=== PATIENT | male | born 1945 | race Caucasian/White ===

== ENCOUNTER 2019-08-12 08:17 | Outpatient (CLI) | payer MEDICARE, SELFPAY ==
--- NOTE | ~2019-08-12 | CT_ITS ---
EXAMINATION: CT chest abdomen w con DATE: 08/12/2019 08:58 INDICATION: Rectal cancer TECHNIQUE: Computed tomography (CT) of the chest and abdomen was performed with 100 mL Omnipaque-350 intravenous contrast. Automated exposure control and iterative reconstruction technique were employed . The dose-length product was 904.71 mGy-cm. COMPARISON: CT studies dated 05/01/2019, 10/17/2018, 10/21/2018 and 09/14/2016 and PET/CT dated 03/14/2018 FINDINGS: CHEST: Discoid atelectasis/scarring along the nondependent between the right upper and middle lobes at the s ite of a previously FDG avid nodule. Additional minimal bibasilar atelectasis. Calcified right lower lobe nodule along with calcified right bronchial lymph nodes consistent with old granulomatous diseas e. No pneumonia, suspicious pulmonary nodules, pulmonary edema or pleural effusion. Heart size is nor mal. No pericardial effusion. Atherosclerotic coronary artery calcifications. Thoracic aorta is eagle l in caliber with no dissection. No pathologically enlarged thoracic lymphadenopathy. Bilateral gynec omastia. T9 hemangioma. Mild upper thoracic levoscoliosis. ABDOMEN: Stable appearance of postoperative changes of a right hemihepatectomy with compensatory hypertrophy o f the lateral segments of the left hepatic lobe. No interval change in approximately 1.7 x 1.9 cm reg ion of decreased attenuation in the liver along the resection margin which has decreased in size sinc e 09/14/2016. The gallbladder is also surgically absent. Mild splenomegaly measuring 14.7 cm in cranio caudal length. Pancreas and bilateral adrenal glands are normal. Bilateral renal parapelvic cysts. Le ft lower quadrant likely and colostomy with parastomal hernia containing a portion of the remaining d istal colon. Partially visualized moderate sized wide mouth umbilical hernia containing loops of nono bstructed small bowel. There are a few smaller fat-containing supraumbilical ventral hernias along a midline surgical scar. Visualized portions of the bowels are otherwise unremarkable with no wall thic kening or obstruction. No pathologically enlarged abdominal lymphadenopathy. Moderate to severe lumba r spondylosis. IMPRESSION: 1. Band of discoid atelectasis/scarring along the minor fissure at the junction of the right upper an d middle lobes at the site of a prior FDG avid nodule suggesting interval treatment. 2. Status post right hemihepatectomy with no recent interval change in a small nodular region of decr eased attenuation along the resection margin, decrease in size since an earlier study which could rep resent either treated metastatic disease or scarring related to chronic infarct. 3. No evident residual metastatic disease in the chest or abdomen. 4. Additional postoperative changes including left lower quadrant end colostomy with nonobstructed gertrudis wel containing abdominal wall hernias as detailed above. Reviewed, dictated and finalized at location A. IMPRESSION: 1. Band of discoid atelectasis/scarring along the minor fissure at the junction of the right upper and middle lobes at the site of a prior FDG avid nodule sug gesting interval treatment. 2. Status post right hemihepatectomy with no recent interval change in a small nodular region of decreased attenuation along the resection margin, decrease in size since an earlier study which could represent either treated metastatic di sease or scarring related to chronic infarct. 3. No evident residual metastatic disease in the chest or abdomen. 4. Additional postoperative changes including left lower quadrant end colostomy with nonobstructed bowel containing abdominal wall hernias as detailed above.
[2019-08-12 08:47] LABS: Estimated Glomerular Filt Rate 60
== END 2019-08-12 08:18 | disposition home or self-care (01) ==
PROVIDERS: PCP Internal Medicine; Visit Provider Internal Medicine Medical Oncology
DX: C20 Malignant neoplasm of rectum (principal); R91.8 Other nonspecific abnormal finding of lung field; K43.9 Ventral hernia without obstruction or gangrene; Z90.49 Acquired absence of other specified parts of digestive tract
CPT/HCPCS: 36415; 71260; 74160; Q9967

== ENCOUNTER 2020-01-10 00:29 | Outpatient (CLI) | payer MEDICARE, SELFPAY ==
[2020-01-10 18:03] LABS: SARS-CoV-2 RNA PCR Negative
== END 2020-01-10 00:30 | disposition home or self-care (01) ==
LOC: ANHCOVIDDT 00:29
PROVIDERS: PCP Internal Medicine; Visit Provider Internal Medicine Gastroenterology
DX: Z01.812 Encounter for preprocedural laboratory examination (principal); Z20.828 Contact with and (suspected) exposure to other viral communicable diseases
CPT/HCPCS: 87635; C9803; U0003

== ENCOUNTER 2020-01-13 01:35 | Day surgery (SDC) | payer MEDICARE, SELFPAY ==
[2020-01-07 10:59] VITALS: BMI 33.7
--- NOTE | 2020-01-13 11:15 | WPDANESEPPF ---
Anes - Initial Pre Proc Eval Procedure: Operation Date: 01/13/20 12:30 Proposed Procedures p Screening Colonoscopy - James Traylor MD Date/Time: 01/13/20 11:15 Surgeon: James Traylor MD Pre Op Diagnosis: Hx of colon polyps Patient Data Age: 74 Gender: M Height: 5 ft 6 in Weight: 95 kg Allergies Allergy/AdvReac Type Severity Reaction Status Date / Time Sulfa (Sulfonamide Allergy Unknown HIVES Verified 01/13/20 11:02 Antibiotics) Home Medications Medication Instructions Recorded Confirmed Type candesartan 8 mg PO DAILY 01/07/20 01/13/20 History clonidine HCl 0.2 mg PO BID 01/07/20 01/13/20 History dexamethasone 4 mg PO DIRECTED 01/07/20 01/13/20 History hydralazine 25 mg PO TID 01/07/20 01/13/20 History magnesium oxide 400 mg PO BID 01/07/20 01/13/20 History minocycline 50 mg PO BID 01/07/20 01/13/20 History Patient hx anesthesia problems: none Family hx anesthesia problems: none [facility] Past Medical History Medical History Hypertension Rectal cancer Social History Social History Alcohol intake: current Drinks per week: 4 Alcohol use details: SCOTCH Substance use: never Substance use type: does not use Living arrangements: with family Spiritual care concerns: No Anes - Eval Final PreProcedure Day of Procedure 01/13/20 11:15 Patient weight: obese Heart: regular rate and rhythm Lungs: clear to auscultation Airway: Mallampati scale class II Neurological: alert and oriented Last oral intake: >/= 8 hours ASA classification: III Emergent: no Anesthetic plan: proceed Anesthesia type and monitoring: general GIVS and standard monitoring Informed Consent: The patient's anesthetic plan and its attendant risks and benefits were discussed with the patient/family/POA. Questions were solicited and answers provided to the satisfaction of the patient/family/POA.
--- NOTE | 2020-01-13 11:16 | P.HP_ITS ---
History of Present Illness History of Present Illness Consent: Risks, benefits, and alternatives have been discussed and questions answered. Patient agrees to proceed with procedure. Chief complaint: Hx of colon polyps Narrative: Kurt Hansen is a 74 year old male with a history of rectal cancer. [facility] Past Medical History Medical History Hypertension Rectal cancer Social History Social History Alcohol intake: current Drinks per week: 4 Alcohol use details: [facility], [facility] Substance use: never Substance use type: does not use Living arrangements: with family Spiritual care concerns: No Meds Home Medications and Allergies Home Medications Medication Instructions Recorded Confirmed Type candesartan 8 mg PO DAILY 01/07/20 01/13/20 History clonidine HCl 0.2 mg PO BID 01/07/20 01/13/20 History dexamethasone 4 mg PO DIRECTED 01/07/20 01/13/20 History hydralazine 25 mg PO TID 01/07/20 01/13/20 History magnesium oxide 400 mg PO BID 01/07/20 01/13/20 History minocycline 50 mg PO BID 01/07/20 01/13/20 History Allergies Allergy/AdvReac Type Severity Reaction Status Date / Time Sulfa (Sulfonamide Allergy Unknown HIVES Verified 01/13/20 11:02 Antibiotics) Exam Resp: Auscultation: clear to auscultation bilaterally Cardio: Rate: regular rate Rhythm: regular rhythm GI: GI Palp: Yes Soft to palpation and No Tenderness to palpation present (GI) Assessment and Plan Assessment and plan (1) History of rectal cancer: Code(s): Z85.048 - Personal history of other malignant neoplasm of rectum, rectosigmoid junction, and anus Status: Acute Assessment and Plan: Colonoscopy with possible biopsy or polypectomy or cautery or injection of substances.
[2020-01-13] MEDS: LACTATED RINGERS 1,000 ML 150 ML IV CONT (11:25)
[2020-01-13 11:28] VITALS: BP 128/63; PULSE 63; RESP 18; TEMP 35.9; O2SAT 100; BMI 33.6
[2020-01-13 11:57] VITALS: BP 113/62; PULSE 52; RESP 14; O2SAT 97
[2020-01-13 12:07] VITALS: BP 125/65; PULSE 54; RESP 16; O2SAT 99
[2020-01-13 12:17] VITALS: BP 129/68; PULSE 60; RESP 18; O2SAT 99
== END 2020-01-13 12:55 | disposition home or self-care (01) ==
PROVIDERS: PCP Internal Medicine; Visit Provider Internal Medicine Gastroenterology
PROC: 0DJD8ZZ Inspection of Lower Intestinal Tract, Via Natural or Artificial Opening Endoscopic (ICD-10-PCS; CPT 45378; principal; 2020-01-13 12:30)
DX: Z12.11 Encounter for screening for malignant neoplasm of colon (principal); K56.699 Other intestinal obstruction unspecified as to partial versus complete obstruction; Z85.048 Personal history of other malignant neoplasm of rectum, rectosigmoid junction, and anus; I10 Essential (primary) hypertension; Z86.010 Personal history of colon polyps; E66.9 Obesity, unspecified; Z68.33 Body mass index [BMI] 33.0-33.9, adult
CPT/HCPCS: 44388; J2704; J7120